=== PATIENT | male | born 1960 | race Caucasian/White ===

== ENCOUNTER → 2021-04-11 12:40 | Outpatient (CLI) | payer BC, SELFPAY ==
--- NOTE | ~2021-04-11 | MR_ITS ---
EXAMINATION: MR ankle RT wo con DATE: 04/11/2021 13:41 INDICATION: Insertional Achilles tendinopathy TECHNIQUE: Magnetic resonance imaging (MRI) of the right ankle was performed without intravenous cont rast. Sequences included sagittal, coronal, and axial proton-density weighted fast spin echo without and with fat saturation. COMPARISON: None. FINDINGS: Medial ankle ligaments: Deep and superficial deltoid ligaments as well as the spring ligament are normal. Lateral ankle ligaments: The anterior and posterior inferior tibiofibular ligaments are normal. The anterior talofibular, calc aneofibular and posterior talofibular ligaments are normal. Tendons: Mild thickening and mild increased signal at the lateral aspect of the distal Achilles tendon consist ent with mild tendinosis without discrete tear. Tiny associated Achilles calcaneal spur. No associate d peritendinitis. The peroneus longus and brevis tendons are normal. The tibialis anterior and extens or hallucis longus and extensor digitorum longus tendons are normal. The tibialis posterior, flexor d igitorum longus and flexor hallucis longus tendons are normal. Plantar fascia: Small plantar calcaneal spur. There is thickening of the proximal plantar aponeurosis with minimal in creased signal without surrounding edema to suggest acute plantar fasciitis. Small heterotopic ossicl e is seen within the central component of the plantar aponeurosis proximally 3 cm from its calcaneal origin more distal than typical for enthesopathy. Bones/other: Bone alignment is normal. Mild to moderate polyarticular osteoarthritis in the midfoot most prominent at the second and third tarsal metatarsal joints and at the articulation between the medial and mid cuneiforms. Mild osteoarthritis at the subtalar joint. No fracture or pathologic marrow replacing pro cess. Fluid: Physiologic amount fluid in the joint spaces. No tenosynovitis, bursitis or other abnormal fluid elbert ections. IMPRESSION: 1. Mild insertional tendinosis/enthesopathy at the distal Achilles tendon without discrete tear. 2. More prominent enthesopathy at the proximal plantar aponeurosis with more distal heterotopic ossic le which could be related to prior trauma or diffuse idiopathic skeletal hyperostosis (DISH). 3. Mild to moderate polyarticular osteoarthritis the right mid and hindfoot. Reviewed, dictated and finalized at location A. DIATION CONSULTANT IMPRESSION: 1. Mild insertional tendinosis/enthesopathy at the distal Achilles tendon witho ut discrete tear. 2. More prominent enthesopathy at the proximal plantar aponeurosis with more di stal heterotopic ossicle which could be related to prior trauma or diffuse idio pathic skeletal hyperostosis (DISH). 3. Mild to moderate polyarticular osteoarthritis the right mid and hindfoot.
== END ==
PROVIDERS: PCP Internal Medicine; Visit Provider Podiatrist Foot & Ankle Surgery
DX: M67.871 Other specified disorders of synovium, right ankle and foot (principal); M19.071 Primary osteoarthritis, right ankle and foot; M77.31 Calcaneal spur, right foot
CPT/HCPCS: 73721

== ENCOUNTER 2021-04-16 18:47 | Emergency (ER) | payer BC, SELFPAY ==
--- NOTE | ~2021-04-16 | XR_ITS ---
XR chest 2V DATE: 04/16/2021 19:04 INDICATION: Cough, shortness of breath. Covid-positive for 2 weeks. TECHNIQUE: PA and lateral views COMPARISON: 03/11/2016 2 view chest FINDINGS: Patchy bilateral groundglass infiltrates are noted particularly in the mid and lower lung z ones suggesting bilateral Covid pneumonia. No pleural effusion or pulmonary vascular congestion or pneumothorax. Normal heart size. IMPRESSION: Patchy bilateral groundglass infiltrates suggesting bilateral Covid pneumonia Reviewed, dictated and finalized at location A. S OPERATIONS SPECIALIST
[2021-04-16 18:50] VITALS: BP 177/108; PULSE 106; RESP 20; TEMP 37.8; O2SAT 96
--- NOTE | 2021-04-16 19:04 | ED.URI ---
HPI - URI/Sore Throat General Chief Complaint: Upper Respiratory Infection Stated Complaint: SOB S/P COVID Time Seen by Provider: 04/16/21 19:04 Source: patient, RN notes reviewed and old records reviewed Mode of arrival: ambulatory Limitations: no limitations History of Present Illness HPI Narrative: 60-year-old male who presents to [facility] with complaints of feeling some dyspnea with exertion and not feeling like his strength is returning after being diagnosed with COVID 2 weeks ago. Patient states that he took a vacation week off this week because he didn't feel he was able to go back to work yet. Patient states that he did have 2 Moderna vaccines but has not had booster. Patient is still running a low grade fever of 100F,. Patient reports that he is still coughing and at times is bringing up some white mucous. MD elicited complaint: cough Related Data Home Medications Medication Instructions Recorded Confirmed aspirin [Aspir-81] 81 mg PO DAILY 04/16/21 04/16/21 lisinopril 10 mg PO DAILY 04/16/21 04/16/21 metoprolol tartrate 50 mg PO BID 04/16/21 04/16/21 simvastatin 40 mg PO HS 04/16/21 04/16/21 Allergies Allergy/AdvReac Type Severity Reaction Status Date / Time No Known Allergies Allergy Unverified 02/18/19 10:33 Review of Systems Review of Systems: CONSTITUTIONAL: Positive fever, chills, or sweats. EYES: Denies visual changes, redness, or discharge. ENT: Positive rhinorrhea, congestion,no sore throat, or otalgia. CARDIOVASCULAR: Denies chest pain, palpitations, or edema. RESPIRATORY: Positive for cough and dyspnea. GASTROINTESTINAL: Denies abdominal pain, nausea, vomiting, or diarrhea. GENITOURINARY: Denies dysuria or hematuria. SKIN: Denies rash or itching. MUSCULOSKELETAL: Denies back pain, joint pain, or myalgia. NEUROLOGIC: Denies headache, numbness, or weakness. PSYCHIATRIC: Positive history of anxiety or depression. All systems reviewed & are unremarkable except as noted in HPI and below PMFSH Past Medical History Medical History (Updated 04/16/21 @ 19:41 by Belen Pepe NP) Hyperlipidemia Hypertension Obesity Surgical History Surgical History (Updated 04/16/21 @ 19:43 by Belen Pepe NP) H/O right knee surgery History of shoulder surgery History of thumb surgery right Social History Social History (Updated 04/16/21 @ 19:43 by Belen Pepe NP) Smoking status: Never smoker Alcohol intake: former Substance use: never Living arrangements: with family Gender identity (if verbalized by the patient): Male Comments At time of signature, agree with nursing past medical, surgical, social and family history. There is no relevant family history pertinent to the presenting complaint Exam Narrative: GENERAL: Well-appearing, well-nourished, and in no acute distress. HEAD: Normocephalic, atraumatic. EYES: PERRLA and EOMI. ENT: Nares red with clear rhinorrhea no epistaxis. Mucous membranes moist.TM's normal with good light reflex, throat red with no lesions or exudates, no tonsil swelling post nasal drainage NECK: Supple. no lymphadenopathy CHEST: coarse breath sound to bilateral lung bases on auscultation. No respiratory distress.SAO2 96% on room air HEART: Regular rate and rhythm. No murmur heard. Normal peripheral pulses. ABDOMEN: Soft, nontender, nondistended, normal active bowel sounds. EXTREMITIES: Normal range of motion. No edema. SKIN: Warm, dry, no rash. NEURO: No focal deficits. Alert and oriented x3. Course Course Level of Care: Express Care Visit Vital Signs Vital signs: Vital Signs Temperature 37.8 C H 04/16/21 18:50 Pulse Rate 106 H 04/16/21 18:50 Respiratory Rate 20 04/16/21 18:50 Blood Pressure 177/108 H 04/16/21 18:50 Pulse Oximetry 96 04/16/21 18:50 Temperature 37.8 C H 04/16/21 18:50 Pulse Rate 106 H 04/16/21 18:50 Respiratory Rate 20 04/16/21 18:50 Blood Pressure 177/108 H 04/16/21 18:50 Pulse Oximetry 96 03/24
[2021-04-16 19:32] VITALS: BP 154/87; PULSE 102
== END 2021-04-16 19:32 | disposition home or self-care (01) ==
PROVIDERS: Emergency Provider Registered Nurse; PCP Internal Medicine
DX: U07.1 COVID-19 (principal); J12.82 Pneumonia due to coronavirus disease 2019; E78.5 Hyperlipidemia, unspecified; I10 Essential (primary) hypertension; E66.9 Obesity, unspecified; Z68.41 Body mass index [BMI] 40.0-44.9, adult
CPT/HCPCS: 71046; 99203; G0463

== ENCOUNTER 2024-10-06 09:00 | Outpatient (CLI) | payer MEDICARE, SELFPAY ==
--- NOTE | ~2024-10-06 | NM_ITS ---
NM bone scan limited area INDICATION: Congenital malformation TECHNIQUE: The patient was injected with 23.6 mCi Tc 99m HDP. Gamma camera images of the pelvis were obtained. COMPARISON: None FINDINGS: There is normal distribution of radiopharmaceutical throughout the skeletal and soft tissue structures. There is mild uptake in the lumbar spine paracentrally, consistent with degenerative abdoulaye nge. There is normal uptake in the bladder. IMPRESSION: 1: Normal limited bone scan of the pelvis for age. Reviewed, dictated and finalized at location A.
--- OUTSIDE RECORDS SUMMARY | 2024-10-06 09:07 | XMS_ITS | Clinical Summary ---
Author Organization [facility] [place] Address [address] [place] [address] Care Team Providers Care Oil Spreader Operator Name Role Phone Devendra Crespo MD Unavailable [phone] Source Comments [facility],non-owned Affiliates and Associated Physician Practices is amultiple site organization consisting of ambulatory clinics and hospital sitesin [place], [place], [place] and [place]. This disclosure is being madepursuant to the Care Everywhere program and may not contain all information available regarding this patient. Last updated 17.[facility] Allergies No known active allergies Medications * Be aware that medications may not be up to date on this document. Alwaysverify current medications with the patient. lisinopril-hydro chlorothiazide (PRINZIDE; ZESTORETIC) 10-12.5 MG tablet daily. Active metoprolol tartrate IR (LOPRESSOR) 50 MG tablet 2 times daily. Active simvastatin (ZOCOR) 40 MG tablet at bedtime. Active Active Problems Problem Noted Date Diagnosed Date Hypertension 04/17/2010 Displacement of lumbar inter vertebral disc without myelopathy 04/17/2010 Social History Tobacco Use Types Packs/Day Years Used Date Smoking Tobacco: Never Smokeless Tobacco: Never Alcohol Use Standard Drinks/Week Comments No 0 (1 standard drink = 0.6 oz pur e alcohol) Sex and Gender Information Value Date Recorded Sex Assigned at Not on file Legal Sex Male 9:51 AM PRE CODER Gender Identity Not on file Sexual Orientation Not on file Last Filed Vital Signs Vital Sign Reading Time Taken Comments Blood Pressure - - Pulse - - Temperature - - Respiratory Rate - - Oxygen Saturation - - Inhaled Oxygen Concentration - - Weight 124.7 kg (275 lb) 04/17/2010 1:08 PM PRE CODER Height 172.7 cm (5' 8) 04/17/2010 1:08 PM PRE CODER Body Mass Index 41.81 04/17/2010 1:08 PM PRE CODER Plan of Treatment Health Maintenance Due Date Last Done Comments COLOGUARD (AGES 45-75) - COL ON CA SCREENING 1961 COLON MONITORING 1961 COLONOSCOPY - COLON CA SCREENING 1961 CT COLONOGRAPHY - COLON CA SCREENING 1961 Colorectal Cancer Screening 1961 FIT - COLON CA SCREENING 1961 FLEX SIG - COLON CA SCREENING 1961 HIV SCREENING 1976 HEPATITIS C SCREENING 05/03/1979 DTAP/TDAP/TD VACCINES (1 - Tdap) 1980 PNEUMOCOCCAL VACCINE 50+ (1 of 1 - PCV) 2011 ZOSTER VACCINE (1 of 2) 2011 Respiratory Syncytial Virus (RSV) Vaccine Pt: or over 60 yrs (1 - Risk 60-74 years 1-dose series) 2021 COVID-19 VACCINE (1 - 2023-2 5 season) 2023 DEPRESSION SCREENING 03/23/2024 INFLUENZA VACCINE (#1) 2024 HEPATITIS B VACCINE Aged Out No longe r eligible based on patient's age to complete this topic HIB VACCINE Aged Out No longer eligi ble based on patient's age to complete this topic HPV VACCINE Aged Out No longer eligi ble based on patient's age to complete this topic MENINGOCOCCAL (Group B) VACC INE SHARED DECISION-MAKING Aged Out No longer eligibl e based on patient's age to complete this topic MENINGOCOCCAL GROUPS A/C/Y/W VACCINE Aged Out No longer eligible b ased on patient's age to complete this topic Care Teams Oil Spreader Operator Relationship Specialty Start Date End Date Devendra Crespo MD [address] [place] [phone] Internal Medicine 04/17/10
--- OUTSIDE RECORDS SUMMARY | 2024-10-06 09:07 | XMS_ITS | Encounter Summary ---
Author Organization [facility] Address [address] [place] [address] Phone Care Team Providers Care Spreader Name Role Phone Devendra Crespo MD Primary Care Provider Encounter Details Date Type Department Care Team (Late st Contact Info) Description 09/22/2024 Results Follow-Up [facility] [address] [facility] [address] [place] [address] Maisha Smith MD PhD [address] [place] [address] Surgical pathology Social History Tobacco Use Types Packs/Day Years Used Date Smoking Tobacco: Never Smokeless Tobacco: Never AUDIT-C Answer Date Recorded Q1: How often do you have a drink containing alcohol? Never 04/23/2023 Q2: How many drinks containi ng alcohol do you have on a typical day when you are drinking? Patient does not drink Q3: How often do you have si x or more drinks on one occasion? 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
--- OUTSIDE RECORDS SUMMARY | 2024-10-06 09:07 | XMS_ITS | Clinical Summary ---
Author Organization [facility] [address] Address [address] [place] [phone] Care Team Providers Care Automation Application Engineer Name Role Phone Devendra Crespo MD Primary Care Provider Allergies No known active allergies Medications diazePAM (VALIUM) 5 mg tablet Take 1 tablet (5 mg total) by mouth every 8 (eight) hours as needed 09/30/2010 Active lisinopril-hydro CHLOROthiazide (ZESTORETIC) 10-12.5 mg per tablet Take 1 tablet by mouth daily Active memantine (NAMENDA) 5 mg tablet Take 1 tablet (5 mg total) by mouth 2 (two) times a day 08/30/2024 Active metoprolol tartrate (LOPRESSOR) 50 mg immediate release tablet Take 1 tablet (50 mg total) by mouth 2 (two) times a day Active simvastatin (ZOCOR) 40 mg tablet Take 1 tablet (40 mg total) by mouth daily Active Active Problems No known active problems Encounters Date Type Department Care Team Description 09/22/2024 Results Follow-Up [facility] [address] [place] [address] Out[address] Health [address] [place] [address] Maisha Smith MD PhD Surgical pathology 09/20/2024 Orders Only [facility] [address] [place] [address] Maisha Smith MD PhD Neoplasm of unspecified behavior of bone, soft tissue, and skin 09/19/2024 11:00 AM CDT Office Visit [facility] [address] [facility] [address] [place] [address] Maisha Smith MD PhD Neoplasm of unspecified behavior of bone, soft tissue, and skin (Primary Dx); Actinic keratosis from Last 3 Months Social History Tobacco Use Types Packs/Day Years Used Date Smoking Tobacco: Never Smokeless Tobacco: Never Tobacco Cessation:Counseling Given: Not Answered AUDIT-C Answer Date Recorded Q1: How often [...] on file 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 Gender Identity Not on file Sexual Orientation Not on file Obstetrics History Last Filed Vital Signs Vital Sign Reading Time Taken Comments Blood Pressure - - Pulse - - Temperature - - Respiratory Rate - - Oxygen Saturation - - Inhaled Oxygen Concentration - - Weight 139.3 kg (307 lb 1.6 oz) 04/23/2023 2:48 PM RAIL EXPRESS CLERK Height 165.1 cm (5' 5) 04/23/2023 2:48 PM RAIL EXPRESS CLERK Body Mass Index 51.1 04/23/2023 2:48 PM RAIL EXPRESS CLERK Plan of Treatment Health Maintenance Due Date Last Done Comments Colon Cancer Screening-Colonoscopy 1961 Depression Screening 1961 Hepatitis C Screening 1961 Prostate Cancer Screening-PSA 1961 DTaP/Tdap/Td Vaccine (1 - Tdap) 1972 Hepatitis B Screening 1979 Regular Well Visit/Exam 18-64 1979 Zoster Vaccine (1 of 2) 2011 Covid-19 Vaccine (3 2023-2 5 season) 2023 06/22/2020, 05/25/2020 Influenza Vaccine (#1) 2024 12/19/2017 Pneumococcal vaccine <65 Aged Out No longer eligible based on patient's age to complete this topic Procedures Procedure Name Priority Date/Time Associated Diagnosis Comments SURGICAL PATHOLOGY Routine 09/19/2024 12 :00 AM CDT Neoplasm of unspecified behavior of bone, soft tissue, and skin from Last 3 Months Results * Surgical pathology (09/19/2024 12:00 AM CDT) Tissue (Skin, shave biopsy) 09/19/2024 09/20/2024 8:07 AM CDT [facility] - 09/21/2024 12:13 PM CDT EPIC results best viewed via link to PDF [facility] [address], [address], [place] [address] [email or web address] Note to Patients: This report may contain a detailed description of human tissue sent by a health care provider to the laboratory for pathologic evaluation. The content of this report is essential for diagnosis and may provide important critical findings. This information may be unfamiliar to patients to review without a medical professional present. It is advised that the patient review this report in the presence of a health care provider who can answer questions and explain the details. FINAL REPORT Patient Information: PATIENT NAME: DAR ROSAS SEX: M : 1960 (Age: 64) Specimen Information: COLLECTED: 09/19/2024 RECEIVED: 09/20/2024 REPORTED: 09/21/2024 Submitting Physician Information: Maisha Smith MD PhD [address] [place] [address] , DERMATOPATHOLOGY REPORT RESULTS DIAGNOSIS: SKIN, LEFT FRONTAL SCALP, SHAVE BIOPSY: BASAL CELL CARCINOMA exr/lac By this signature, I attest that the above diagnosis is based upon my personal examination of the slides(and/or other material indicated in the diagnosis). Emily Dejesus M.D. Report Electronically Reviewed and Signed Out By Emily Dejesus M.D. 09/21/2024 12:13:22 CLINICAL INFORMATION 1 CM PINK SCALY PLAQUE R/O BCC SPECIMEN DATA MICROSCOPIC DESCRIPTION: Irregular aggregates of atypical basal epithelial cells with palisading of their peripheral nuclei are present within the dermis. (C44.91) GROSS DESCRIPTION: Received in a formalin-containing bottle is a superficial fragment of pink-mireles, slightly crusted, and slightly crusted skin measuring 1.2 by 1.0 by 0.2 cm. The surgical margin is inked blue. The specimen is sectioned into 5 pieces and submitted entirely in a single cassette. Due to shrinkage, measurements may be different than those at time of procedure. sarthak/mat ICD-9 A; ZSD.176 Clerical Data A; 84621 The characteristics of special, immunohistochemical, and immunofluorescence stains and in-situ hybridization tests performed by the [facility] were deemed acceptable in ongoing quality reviewer measures and in compliance with regulations drawn from the Clinical Laboratory Improvement Act xz2301 (CLIA '88). Control reactions for all stains performed were deemed adequate and appropriate by a pathologist prior to evaluation of patient tissue. Some diagnoses were rendered with the assistance of laboratory-developed tests utilizing analyte-specific reagents; the performance characteristic of these tests were determined by [facility] and are not cleared or approved by the [place] Food an Drug administration. Laboratory developed test may only be performed in a facility that is certified by the [facility] as a high-complexity laboratory under CLIA '88. These tests are used for clinical purposes and are not investigational. us Maisha Smith MD PhD LAB PATHOLOGY ORDERABLE S Final Result [facility] C[facility] [address] [place] [id number] from Last 3 Months Insurance [facility] MEDICARE Care Teams Automation Application Engineer Relationship Specialty Start Date End Date eDvendra Crespo MD [address] [facility] [address] [place] [address] PCP - General Internal Medicine 02/27/23
--- OUTSIDE RECORDS SUMMARY | 2024-10-06 09:07 | XMS_ITS | Referral Summary ---
Author Organization [facility] Address [address] [place] [phone] Care Team Providers Care Orthopedic Specialist Name Role Phone Devendra Crespo MD Primary Care Provider Encounters Date Type Department Care Team Description 09/22/2024 Results Follow-Up [facility] [address] [place] [address] Outpatient Health [address] [place] [phone] Maisha Smith MD PhD Surgical pathology 09/20/2024 Orders Only [facility] [address] [place] [address] Maisha Smith MD PhD Neoplasm of unspecified behavior of bone, soft tissue, and skin 09/19/2024 11:00 AM CDT Office Visit [facility] [address] [place] [address] Outpatient Health [address] [place] [phone] Maisha Smith MD PhD Neoplasm of unspecified behavior of bone, soft tissue, and skin (Primary Dx); Actinic keratosis from Last 3 Months Allergies No known active allergies Medications diazePAM [...] Active Active Problems No known active problems Social History Tobacco Use Types Packs/Day Years [...] on file 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 Gender Identity Not on file Sexual Orientation Not on file Last Filed Vital Signs Vital Sign Reading Time Taken Comments Blood Pressure - - Pulse - - Temperature - - Respiratory Rate - - Oxygen Saturation - - Inhaled Oxygen Concentration - - Weight 139.3 kg (307 lb 1.6 oz) 04/23/2023 2:48 PM PROCESSING ASSISTANT Height 165.1 cm (5' 5) 04/23/2023 2:48 PM PROCESSING ASSISTANT Body Mass Index 51.1 04/23/2023 2:48 PM PROCESSING ASSISTANT Plan of Treatment Not on file Procedures Procedure Name Priority Date/Time Associated Diagnosis Comments SURGICAL PATHOLOGY Routine 09/19/2024 12 :00 AM CDT Neoplasm of unspecified behavior of bone, soft tissue, and skin from Last 3 Months Results * Surgical pathology (09/19/2024 12:00 AM CDT) Tissue (Skin, shave biopsy) 09/19/2024 09/20/2024 8:07 AM CDT [facility] - 09/21/2024 12:13 PM CDT [facility] results best viewed via link to PDF [facility] [address] [place] [address], [address], [place] [address] [email or web address] Note to Patients: This report may contain [...] Physician Information: Maisha Smith MD PhD [address] [place] [address] , DERMATOPATHOLOGY REPORT RESULTS DIAGNOSIS: SKIN, LEFT [...] sarthak/mat ICD-9 A; ZSD.176 Clerical Data A; 32294 The characteristics of special, immunohistochemical, and immunofluorescence stains and in-situ hybridization tests performed by the [facility] were deemed acceptable in ongoing quality improvement coordinator (rn) measures and in compliance with regulations drawn from the Clinical Laboratory Improvement Act [id number] (CLIA '88). Control reactions for all stains [...] a facility that is certified by the [facility] as a high-complexity laboratory under CLIA '88. These tests are used for clinical purposes and are not investigational. Maisha Smith MD PhD LAB PATHOLOGY ORDERABLE S Final Result D[facility]MATOPATHOLOGY CENTER [address] [place] [id number] from Last 3 Months Insurance [facility] MEDICARE Care Teams Orthopedic Specialist Relationship Specialty Start Date End Date Devendra Crespo MD [address] [place] [address] PCP - General Internal Medicine 02/27/23
--- OUTSIDE RECORDS SUMMARY | 2024-10-06 09:08 | XMS_ITS | Data Portability ---
Author Organization [facility] MIGUEL ÁNGELMark Address [address] [place] [address] Care Team Providers Care Track Welder Name Role Phone LOREN CHAMBERLAIN Primary Care Provider Unavailab le Assessment No assessment recorded. Plan of Treatment Reminders Order Date Submit Date Provider Last Modified By Organization Details Last Modified Time Details Appointments ANY 15 2024 10:30A M IGNACIA Reyez Not available Not available Not available Lab HbA1c (hemog lobin A1c), blood 2024 025 [facility], [address], [place], [address], 04/13/2024 10:18:37 CBC w/ auto diff 2024 025 [facility], [address], [place], [address], 04/13/2024 10:18:47 CMP, serum or plasma 2024 025 [facility], [address], [place], [address], 04/13/2024 10:18:11 urinal ysis comple te, reflex cultur e 2024 025 [facility], [address], [place], [address], 04/13/2024 10:19:02 lipid panel, serum 2024 025 [facility], [address], [place], [address], 04/13/2024 10:17:56 insuli n, serum 2024 025 [facility], [address], [address], [place], [address], 04/13/2024 10:19:26 TSH + free T4, serum 2024 025 [facility], [address], [address], [place], [address], 04/13/2024 10:16:41 vitami n B12 + folate , serum or blood 2024 025 [facility], [address], [address], [place], [address], 04/13/2024 10:19:14 Referral podiat rist referr al 2024 025 [facility], [address] [place] [address], [address], 09/28/2024 16:33:47 dermat ologis t referr al 2024 025 [email or web address] [facility], [address] [facility] , [place], [address], 09/16/2024 12:57:21 Procedures home sleep testin g (PROC) - #[id number] 5, effect cayla 2024 - 2024, for proced ure codes 68866, G0399 2024 025 [email or web address] [facility], [address] [place] [address], [place], [address], 07/23/2024 02:31:14 Surgeries None record ed. Imaging NM, bone scan, limite d - focus iliac/ pelvic bones 2024 025 [facility] (Imaging), [address], [place], [address], 09/22/2024 12:06:27 CT, abdome n + pelvis , w/ contra st 2024 025 [facility] (Imaging), [address], [place], [address], 05/31/2024 10:38:04 MRI, brain, w/wo contra st 2024 025 [facility], [address], [place], [address], 04/18/2024 14:11:47 Medication Orders tadala scott 20 mg tablet 2024 025 [facility] #[id number], [address], [place], [address], 09/20/2024 10:29:02 Namend a Titrat ion Dash 5 mg-10 mg tablet s in a dose pack 2024 025 [facility]acy #[id number], [address], [place], [address], 05/06/2024 17:56:54 amoxic illin 500 mg capsul e 2024 025 [email or web address] [facility]/Pharmacy #[id number], [address], [place], [address], 07/29/2024 15:04:17 citalo pram 20 mg tablet 2024 025 [facility]/Pharmacy #[id number], [address], [place], [address], 04/29/2024 17:51:37 Patient TargetsNo targets recorded. 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 [address] [address], [place], [address], 04/28/2024 12:02:14 06/01/19 25 05/30/2024 CT, abdom en + pelvi s, w/ contr ast No observ ation record ed. [email or web address] [facility] [address] [place], [address], 08/18/2024 09:05:40 06/07/19 25 10/05/2019 colon oscop y scree chinmay (PROC ) No observ ation record ed. BARCODE Not Available 2024 14:57:57 06/08/19 25 05/27/2024 home sleep testi ng (PROC ) No observ ation record ed. [facility] [address], [place], [address], 06/13/2024 18:54:05 Result Notes None recorded. Problems Name Problem SNOMED Code Status Onset Date Resolution Date Notes Provider Name and Address Organization Details Recorded Time Body mass index 40+ - severely obese 335768230 Active 2024 IGNACIA Reyez Attn: Accountin g,[address] [facility], [place], [address], [place] [facility] 5 10:10:45 Minimal cognitive impairment 563861108 Active 2024 IGNACIA Reyez Attn: Accountin g,[address] [facility], [place], [address], [place] [facility] 5 09:57:05 Intermitten t confusion 323227353 Active 2024 IGNACIA Reyez Attn: Accountin g,[address] [facility], [place], [address], [place] [facility] 5 09:57:17 Emotional upset 739027515 Active 2024 IGNACIA Reyez Attn: Accountin g,[address] [facility], [place], [address], [place] [facility] 5 09:57:34 Benign essential hypertensio n 7732073 Active 2024 IGNACIA Reyez Attn: Accountin g,[address] [facility], [place], [address], [place] [facility] 5 09:57:35 Apnea 7851193 Active 2024 IGNACIA Reyez Attn: Accountin g,[address] [facility], [place], [address], [place] [facility] 5 09:58:12 Blood glucose outside reference range 414436709 Active 2024 IGNACIA Reyez Attn: Accountin g,[address] [facility], [place], [address], [place] [facility] 5 09:58:16 Pigmented skin lesion of uncertain nature of head 598357011 Active 2024 IGNACIA Reyez Attn: Hugo andujar,[address] [facility], [place], [place], [address] [place] [address], [place] [facility] 5 09:58:26 Positive screening for depression on PHQ-9 (Patient Health Questionnai re 9) 9600871919778 00 Active 2024 IGNACIA Reyez Attn: Hugo andujar,[address] [place], [place], [address] [place] [address], [place] [facility] 5 09:59:13 Anxiety 48188553 Active 2024 IGNACIA Reyez Attn: Hugo andujar,[address] [place], [place], [address] [place] [address], [place] [facility] 5 09:35:00 Obesity 988146552 Active 2024 IGNACIA Reyez Attn: Zaneherlinda andujar,[address] [place], [place], [address] [place] [address], [place] [facility] 5 09:35:14 Long-term drug therapy Active 2024 IGNACIA Reyez Attn: Hugo andujar,[address] [place], [place], [address] [place] [address], [place] [facility] 5 09:35:24 Lower abdominal pain 17432005 Active 2024 IGNACIA Reyez Attn: Zaneherlinda andujar,[address] [place], [place], [address] [place] [address], [place] [facility] 5 09:36:16 Pure hypercholes terolemia 042200387 Active 2024 Seema Hayes LPN null, [place] [facility] 5 09:24:49 Obese class III 093503687 Active 2024 IGNACIA Reyez Attn: Hugo g,[address] [place], [place], [address] [place] [address] 2, [place] [facility] 5 21:05:52 Mixed sleep apnea 191675830 Active 2024 IGNACIA Reyez Attn: Hugo andujar,[address] [facility], [place], [address], [facility] [place] - [facility] 13:47:22 Erectile dysfunction 875613562 Active 2024 IGNACIA Reyez Attn: Hugo andujar,[address] [facility], [place], [address], [facility] [place] - SI 13:47:39 Problem Notes None recorded. Procedures Surgical History Date Name Laterality Status Provider Name and Address Organization Details Recorded Time Back Surgery completed Jos Solis MA [facility] 04/04/2024 16:04:52 Knee Surgery completed Jos Solis MA [facility] 04/04/2024 16:04:58 Tonsillectomy completed Jos Solis MA [facility] 04/04/2024 16:05:03 procedure on foot completed Jos Solis MA [facility] 04/04/2024 16:05:10 Imaging Results None recorded. Procedure Notes None recorded. Medical Equipment None Reported. Allergies No known drug allergies Medications Name Sig Start Date Stop Date Status Note LastModified by Organization Details LastModified Time cyclobenzap rine 10 mg tablet TAKE 1 TAB BY MOUTH ONCE DAILY AT BEDTIME FOR 8-10 DAYS, DO NOT DRIVE OR OPERATE MACHINERY 04/04 completed Not Available Not Available Not Available amoxicillin 500 mg capsule TAKE 1 CAPSULE EVERY 8 HOURS BY ORAL ROUTE, FOR SINUS INFECTION . 07/29 completed Not Available Not Available Not Available methocarbam ol 500 mg tablet Take by oral route for 5 days. 09/20 completed Not Available Not Available Not Available doxycycline hyclate 100 mg capsule TAKE 1 CAPSULE BY MOUTH TWICE A DAY 03/08 completed Not Available Not Available Not Available azithromyci n 250 mg tablet TAKE 2 TABLETS BY MOUTH TODAY, THEN TAKE 1 TABLET DAILY FOR 4 DAYS DIRECTED 03/08 completed Not Available Not Available Not Available benzonatate 200 mg capsule TAKE 1 CAPSULE BY MOUTH THREE TIMES A DAY 03/08 completed Not Available Not Available Not Available prednisone 20 mg tablet TAKE 3 TABLETS BY MOUTH EVERY DAY FOR 5 DAYS 03/08 completed Not Available Not Available Not Available simvastatin 40 mg tablet Take 1 tablet every day by oral route for 90 days. active Not Available Not Available No t Available citalopram 20 mg tablet TAKE 1 TABLET EVERY DAY BY ORAL ROUTE IN THE EVENING, FOR ANXIETY. active Not Available Not Available No t Available baclofen 10 mg tablet TAKE 1 TABLET BY MOUTH FOUR TIMES A DAY 04/04 completed Not Available Not Available Not Available metoprolol tartrate 50 mg tablet TAKE 1 TABLET BY MOUTH TWICE A DAY active Not Available Not Available No t Available lorazepam 1 mg tablet TAKE 1 TABLET BY MOUTH 30 MINUTES BEFORE MRI 09/20 completed Not Available Not Available Not Available lisinopril 10 mg-hydrochl orothiazide 12.5 mg tablet TAKE 1 TABLET BY MOUTH EVERY DAY active Not Available Not Available No t Available albuterol sulfate HFA 90 mcg/actuati on aerosol inhaler INHALE 2 PUFFS EVERY 4 HOURS NEEDED 04/04 completed as neede d/ hasn' t h Not Available Not Available Not Available naproxen 500 mg tablet TAKE 1 TABLET BY MOUTH EVERY 12 HOURS FOR 8-10 DAYS TAKE WITH FOOD 04/04 completed Not Available Not Available Not Available tadalafil 20 mg tablet TAKE 1 TABLET BY MOUTH 30 MINUTES BEFORE SEXUAL ACTIVITY. MAXIMUM 20 MG IN 24 HOURS. active Not Available Not Available No t Available memantine 5 mg tablet TAKE 1 TABLET BY MOUTH TWICE A DAY active Not Available Not Available No t Available Namenda Titration Dash 5 mg-10 mg tablets in a dose pack take as directed for memory 05/06 completed Not Available Not Available Not Available Gerard active mg Not Available Not Availa ble Not Available Symbicort 80 mcg-4.5 mcg/actuati on HFA aerosol inhaler INHALE 2 INHALATIO NS EVERY 12 HOURS active Not Available Not Available No t Available Vitals Date Recorded Systolic And Diastolic Provider Name and Address Organization Details Last Updated DateTime 04/04/2024 128/80 mm[Hg] IGNACIA Reyez Attn: Accounting,[address] [place], [address], [place] [facility] 04/04/2024 15:37:00 Date Recorded Body weight Body mass index (BMI) Body height Respiratory rate Oxygen saturation Oxygen saturation in Arterial blood by Pulse oximetry Heart rate Systolic And Diastolic Provider Name and Address Organization Details Last Updated DateTime 5 102469. 56 g 48.8 kg/m2 165.1 cm 20 /min 97 % 97 % 87 /min 140/88 mm[Hg] Jos Solis MA [facility] 5 15:02:56 Date Recorded Systolic And Diastolic Provider Name and Address Organization Details Last Updated DateTime 04/28/2024 120/80 mm[Hg] IGNACIA Reyez Attn: Accounting,[address] [place], [address], [facility] 04/28/2024 12:17:10 Date Recorded Body height Body mass index (BMI) Body weight Respiratory rate Oxygen saturation Oxygen saturation in Arterial blood by Pulse oximetry Heart rate Systolic And Diastolic Provider Name and Address Organization Details Last Updated DateTime 5 165.1 cm 47.9 kg/m2 637987. 6 g 20 /min 97 % 97 % 61 /min 138/88 mm[Hg] Jos Solis MA [facility] 11:46:30 Date Recorded Systolic And Diastolic Provider Name and Address Organization Details Last Updated DateTime 07/29/2024 134/80 mm[Hg] IGNACIA Reyez Attn: Accounting,[address] [place], [address], [facility] 07/29/2024 15:46:03 Date Recorded Body height Body mass index (BMI) Body weight Respiratory rate Oxygen saturation Oxygen saturation in Arterial blood by Pulse oximetry Heart rate Systolic And Diastolic Provider Name and Address Organization Details Last Updated DateTime 5 165.1 cm 47.6 kg/m2 478803. 42 g 20 /min 97 % 97 % 62 /min 146/82 mm[Hg] Jos Solis MA [facility] 15:14:50 Date Recorded Body height Body mass index (BMI) Body weight Oxygen saturation Oxygen saturation in Arterial blood by Pulse oximetry Heart rate Respiratory rate Systolic And Diastolic Provider Name and Address Organization Details Last Updated DateTime 5 165.1 cm 47.4 kg/m2 546668. 83 g 99 % 99 % 65 /min 20 /min 120/82 mm[Hg] Jos Solis MA [place] [facility] 10:05:23 Social History Question Answer Notes LastModified by Organizat ion Details LastModified Time Tobacco Smoking Status Never Smoker Jos Solis MA null, [facility] 04/04/2024 15:01:01 Do You Have An Advance Directive? No Information not available 04/04/2024 Are You Blind Or Do You Have Difficulty Seeing? No Glasses Information not available 04/04/2024 What Is Your Level Of Caffeine Consumption? Moderate Soda Information not available 04/04/2024 In The 14 Days Before Symptom Onset, Have You Had Close Contact With A Laboratory-confir med COVID-19 While That Case Was Ill? No Information not available 04/04/2024 In The 14 Days Before Symptom Onset, Have You Had Close Contact With A Person Who Is Under Investigation For COVID-19 While That Person Was Ill? No Information not available 04/04/2024 Have You Been To An Area Known To Be High Risk For COVID-19? No Information not available 04/04/2024 Are You Deaf Or Do You Have Serious Difficulty Hearing? No Information not available 04/04/2024 What Type Of Diet Are You Following? REGULAR Information not available 04/04/2024 Are There Any Guns Present In Your Home? No Information not available 04/04/2024 What Was The Date Of Your Most Recent Tobacco Screening? 09/20/2024 Information not available 09/20/2024 What Is Your Relationship Status? Information not available 04/04/2024 Do You Use Your Seat Belt Or Car Seat Routinely? Yes Information not available 04/04/2024 Do You Have Smoke And Carbon Monoxide Detectors In Your Home? Yes Information not available 04/04/2024 Do You Use Sunscreen Routinely? No Information not available 04/04/2024 Has Tobacco Cessation Counseling Been Provided? No Information not available 04/04/2024 Sex: Male Functional Status Question Answer Note LastModified by Organizat ion Details LastModified Time Do you use any illicit or recreational drugs? No Information not available 04/04/2024 Do you or have you ever used any other forms of tobacco or nicotine? No Information not available 04/04/2024 What is your level of alcohol consumption? None Information not available 04/04/2024 Are you currently employed? No Information not available 04/28/2024 Are you able to care for yourself? Yes Information not available 04/04/2024 What is your exercise level? None Information not available 04/04/2024 Mental Status Question Answer Note LastModified by Organization D etails LastModified Time Do you feel stressed (tense, restless, nervous, or anxious, or unable to sleep at night)? [id number] Information not available 04/04/2024 Family History Relationship Description Onset Age of this Age Resolved Age Notes LastModified by Organization Details LastModified Time Mother Hypercholest erolemia [email or web address] Not available 2024 16:05:21 Mother Hypertensive disorder [email or web address] Not available 2024 16:05:41 Mother Kidney disease [email or web address] Not available 2024 16:05:49 Father Hypertensive disorder tcarterma Not available 2024 16:05:41 Medical History Condition Response Coronary Artery Disease N Other N High Blood Pressure Y Atrial Fibrillation N Kidney or Bladder Problems N Thyroid Problems N GI Problems N Depression N COPD N Blood Clots N Have you had a mammogram in the last yea r? N Skin Problems N Anemia N Heart Attack (IA) N Anxiety Disorder N Diabetes N Muscle, Joint, or Bone Problems N Seizures/Epilepsy N Have you had a colonoscopy in the last 1 0 years? N Acid Reflux (GERD) N Cancer N Stroke N Asthma N Allergies N Have you had a PSA blood test in the las t year? N High Cholesterol Y Hepatitis N Liver Disease N Headaches N Heart Failure N Osteoporosis N Past Encounters Encounter ID Performer Location Encounter Start Date Encounter Closed Date Diagnosis/Indication Diagnosis SNOMED-CT Code Diagnosis ICD10 Code Diagnosis Note [id number] Jasper Castro MD [facility] [address] [place] [address] 04/04/2024 14:28:44 04/04/2024 16:20:49 Body mass index 40+ - severely obese 798957902 Z68.42 BMI is 48.8. Fasting insulin and thyroid labs were ordered Morbid obesity 368558823 E66.01 discussed healthy diet, exercise, controllin g carbohydra luma and added sugars in the diet Minimal co gnitive impairment 493961041 R41.89 Screening vitamin B12 and folate to evaluate for any underlying B12 deficiency that may be contributi ng to his cognitive impairment Intermitte nt confusion 257414787 R41.0 Refer for MRI of the brain with and without contrast for his notable intermitte nt confusion that is present and escalating over the past year. We must rule out a normal pressure hydrocepha nicole or any brain lesion. Emotional upset 37971459 5 R45.89 Patient is very emotional on exam today which seems out of proportion to the situation. Benign ess ential hypertension 0898360 I10 Blood pressure stable at 120 8/80. Continue metoprolol tartrate 50 mg daily and lisinopril hydrochlor othiazide 10/12.5 mg daily Hyperlipidemia 45389229 E78.5 Continue simvastati n 40 mg daily and check fasting lipid panel Apnea 8879320 R06.81 Refer for home sleep study. There is a concern that chronic untreated sleep apnea with hypoxemia at night baby contributi ng to his cognition abnormalit ies and confusion. Blood gluc ose outside reference range 194245426 R73.09 Screening A1c ordered Long-term drug therapy 211941686 Z79.891 Routine CBC, CMP and urinalysis ordered Pigmented skin lesion of uncertain nature of head 628337092 L81.9 Refer to dermatolog y in a timely fashion for management and evaluation of abnormal skin lesion on the top of his head Positive s creening for depression on PHQ-9 (Patient Health Questionnaire 9) 2085891746 78165 Z13.31 Patient scored an 18 on screening today. He is currently not on any medication s for any anxiety or depression but at this time we are going to re-evaluat e for treatment on his follow-up appointmen t. Would like to have lab and diagnostic evaluation completed before starting a new medication . Patient will be following up April 28. [id number] Jasper Castro MD [facility] [employer] [address] [place] [address] 04/28/2024 10:51:09 04/28/2024 12:39:29 Body mass index 40+ - severely obese 349281174 Z68.42 BMI 47.9 Obesity 715200602 E66.9 discussed healthy diet, exercise, controllin g carbohydra luma and added sugars in the diet Sinusitis 27462148 J32.9 Start amoxicilli n 500 mg every 8 hours for 7 days Anxiety 13220445 F41.9 Start citalopram 20 mg daily for underlying anxiety disorder Minimal co gnitive impairment 399026864 R41.89 Start Namenda titration pack as directed for underlying cognitive impairment Long-term drug therapy 679569237 Z79.891 labs reviewed Lower abdominal pain [address] scan of abdomen and pelvis with contrast to evaluate for any hernia developmen t that would be responsibl e for the lower pain in the abdomen Pain in both feet 517941 4431 2071848 M79.671 M79.672 Refer to podiatry for baseline evaluation and foot pain [id number] Jasper Castro MD [facility] [employer] [address] [place] [address] 07/29/2024 14:41:47 07/29/2024 15:58:42 Mixed sleep apnea 165092204 G47.39 CPAP machine and supplies ordered for a different Navendis Anxiety 83840691 F41.9 Continue citalopram 20 mg daily for underlying anxiety disorder, some improvemen t as already noted with stabilizat ion of emotions. Minimal co gnitive impairment 020967800 R41.89 Continue Namenda dosing, tolerating well without any issues Long-term drug therapy 227645756 Z79.891 labs reviewed Disorder of bone 2212599 3 Q79.9 left iliac bone abnormal on CT scan a/p. ? paget's appearance . However MRI of the brain has been completed and does not show any abnormalit ies. We can order a nuclear med bone scan to see if there are any abnormalit ies Obese class III 59031761 5 E66.813 discussed healthy diet, exercise, controllin g carbohydra luma and added sugars in the diet [id number] Jasper Castro MD [facility] [place] [address] [place] [address] 09/20/2024 09:51:49 09/20/2024 11:10:58 Obese class III 496190476 E66.813 discussed healthy diet, exercise, controllin g carbohydra luma and added sugars in the diet Mixed sleep apnea 503053 001 G47.39 Orders again for CPAP machine and supplies given as he was significan tly positive on sleep study testing and he has not heard from previous DME company. Anxiety 32949971 F41.9 Continue citalopram 20 mg daily for underlying anxiety disorder, some improvemen t as already noted with stabilizat ion of emotions. Minimal co gnitive impairment 204097804 R41.89 Continue Namenda dosing, tolerating well without any issues Long-term drug therapy 086485066 Z79.891 Disorder of bone 7106960 3 Q79.9 left iliac bone abnormal on CT scan a/p. ? paget's appearance . However MRI of the brain has been completed and does not show any abnormalit ies. A nuclear med bone scan was ordered at the last appointmen t however he has not scheduled it and another order will be given today and encourage patient to schedule testing. Erectile dysfunction 860 497415 N52.9 Patient is interested in some medical assistance for erectile dysfunctio n that his wanted him to discuss with provider today. We will send a prescripti on for tadalafil 20 mg to use 1/24 hours on an as-needed basis. Health Concerns Section Related Observation LastModified by Organization Detai ls LastModified Time None Recorded Concern Status LastModified by Organization Details LastModified Time None Recorded Advance Directives Directive N: Payers Insurance Date Sequence Insurance Name Policy Number Policy Potter Covered Member ID Potter Member ID Guarantor Name 09/20/2024 1 [employer] [place] [place] - DOS ON OR AFTER 2020 (MEDICAID REPLACEMENT - HMO) Dar Rosas [id number] Dar Rosas 09/20/2024 2 [place] WHEN MEDICARE OR MEDICARE REPLACEMENT PRIMARY) Dar Rosas [id number] Dar Rosas 09/20/2024 [place] [facility] Dar Rosas [id number] Dar Rosas 09/20/2024 1 [place] Dar Rosas [id number] Dar Rosas Notes Date Note Type Note Provider Name and Address Organization Details Recorded Time 5 text/html Back PainReported bypatient.Notes:Patient reports a long history of chronic low back pain with a history of low back surgery.HyperlipidemiaRep orted bypatient.Notes:patient is currently taking simvastatin 40 mg daily for cholesterol managementHypertensionRep orted bypatient.Notes:For blood pressure control patient is taking metoprolol tartrate 50 mg daily and lisinopril hydrochlorothiazide 10/12.5 mg daily.Obstructive Sleep Apnea F/UReported bypatient.Notes:Patient has very notable apnea that is witnessed by family members. One of the main presentation chief complaints today that is endorsed by patient and his on interview is cognitive impairment and confusion that is been escalating over the last few years. He also is very emotional and tearful often and has a hard time managing his emotions. He has confusion on a daily basis and is rarely driving if so only a few blocks near his house. They present today for more in-depth evaluation on his symptoms. There has been no workup completed revolving around these symptoms. IGNACIA Reyez Attn: Accounting,[address] [place], [address], [facility] [place] - [facility] 04/13/2024 09:59:36 5 text/html Back PainReported bypatient.Notes:Patient reports a long history of chronic low back pain with a history of low back surgery.HyperlipidemiaRep orted bypatient.Notes:patient is currently taking simvastatin 40 mg daily for cholesterol managementHypertensionRep orted bypatient.Notes:For blood pressure control patient is taking metoprolol tartrate 50 mg daily and lisinopril hydrochlorothiazide 10/12.5 mg daily.Obstructive Sleep Apnea F/UReported bypatient.Notes:Patient has very notable apnea that is witnessed by family members.Sinusitis/Allergy Reported bypatient.Location:[facility]; frontal Associated Symptoms:facial pain;nasal discharge Onset/Timing:new onset Quality:no pain; no itching; no hoarseness; no throbbing; minimal discomfort;congested Severity:limits daily activities;frequent breathing through the mouth;worsened snoring Context:recent sick contacts Risk Factors:increased stress Alleviating factors:nothing gives relief Aggravating factors:worse during an upper respiratory infection (a cold); worse when allergies are active Prior opinionPCP HPI history: One of the main presentation chief complaints today that is endorsed by patient and his on interview is cognitive impairment and confusion that is been escalating over the last few years. He also is very emotional and tearful often and has a hard time managing his emotions. He has confusion on a daily basis and is rarely driving if so only a few blocks near his house. They present today for more in-depth evaluation on his symptoms. There has been no workup completed revolving around these symptoms. IGNACIA Reyez Attn: Accounting,[address] [place], [address], [place] - [facility] 05/21/2024 09:37:49 text/html Back PainReported bypatient.Notes:Patient reports a long history of chronic low back pain with a history of low back surgery.HyperlipidemiaRep orted bypatient.Notes:patient is currently taking simvastatin 40 mg daily for cholesterol managementHypertensionRep orted bypatient.Notes:For blood pressure control patient is taking metoprolol tartrate 50 mg daily and lisinopril hydrochlorothiazide 10/12.5 mg daily.Obstructive Sleep Apnea F/UReported bypatient.Notes:Patient has very notable apnea that is witnessed by family members. cpap to be ordered again as they have not heard from DME company yet after orders placed. HPI history: One of the main presentation chief complaints today that is endorsed by patient and his on interview is cognitive impairment and confusion that is been escalating over the last few years. He also is very emotional and tearful often and has a hard time managing his emotions. He has confusion on a daily basis and is rarely driving if so only a few blocks near his house. They present today for more in-depth evaluation on his symptoms. There has been no workup completed revolving around these symptoms. Updated HPI today: and patient are noticing his emotions are much more stable. He isn't crying as much since being on medications now. He is pleased with the improvements noted so far. IGNACIA Reyez Attn: Accounting,[address], [place], [address], [facility] [place] [facility] 08/18/2024 21:06:15 5 text/html HypertensionReported bypatient.Notes:For blood pressure control patient is taking metoprolol tartrate 50 mg daily and lisinopril hydrochlorothiazide 10/12.5 mg daily.Obstructive Sleep Apnea F/UReported bypatient.Notes:Patient has very notable apnea that is witnessed by family members. cpap to be ordered again as they have not heard from [employer] company yet after orders placed. HPI history: One of the main presentation chief complaints today that is endorsed by patient and his on interview is cognitive impairment and confusion that is been escalating over the last few years. He also is very emotional and tearful often and has a hard time managing his emotions. He has confusion on a daily basis and is rarely driving if so only a few blocks near his house. They present today for more in-depth evaluation on his symptoms. There has been no workup completed revolving around these symptoms. his emotions are much more stable. He isn't crying as much since being on medications now. He is pleased with the improvements noted so far. Patient has a complaint of erectile dysfunction and is interested in some assistance with medication. IGNACIA Reyez Attn: Accounting,[address], [place], [address], [facility] [place] [facility] 10/05/2024 13:48:45
--- OUTSIDE RECORDS SUMMARY | 2024-10-06 09:08 | XMS_ITS | Clinical Summary ---
Author Organization [facility] Address [address] [place] [id number] Phone Care Team Providers [employer] Name Role Phone Unavailable Primary Care Provider Unavailabl e Allergies No known active allergies Medications simvastatin (ZOCOR) 40 mg Oral tablet Take 40 mg by mouth Daily LATE. Active metoprolol tartrate (LOPRESSOR) 50 mg Oral tablet Take 50 mg by mouth 2 times daily. Active lisinopril-hydro chlorothiazide (ZESTORETIC) 10-12.5 mg Oral tablet Take 1 Tab by mouth daily. Active oxyCODONE-acetam inophen (PERCOCET) 5-325 mg Oral tablet Take 1-2 Tabs by mouth every 4 hours as needed. 50 Tab 0 09/30/2010 Active diazepam (VALIUM) 5 mg Oral tablet Take 1 Tab by mouth every 8 hours as needed (spasm). 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 Gender Identity Not on file Sexual Orientation Not on file Last Filed Vital Signs Vital Sign Reading Time Taken Comments Blood Pressure 123/51 09/30/2010 3:37 PM CDT Pulse 80 09/30/2010 3:37 PM CDT Temperature 36.4 C (97.6 F) 09/30/2010 3:37 PM CDT Respiratory Rate 29 09/30/2010 3:37 PM CDT Oxygen Saturation 98% 09/30/2010 3:37 PM CDT Inhaled Oxygen Concentration - - Weight 126.1 kg (278 lb) 09/26/2010 5:21 AM CDT Height 165.1 cm (5' 5) 09/19/2010 11:49 AM CDT Body Mass Index 46.26 09/19/2010 11:49 AM CDT Plan of Treatment Health Maintenance Due Date Last Done Comments DTAP/TDAP/TD VACCINES (1 - Tdap) 1980 COLORECTAL SCREENING 2006 Colorectal Cancer Screening 2006 FIT-DNA Q 3 years 2006 FIT/FOBT Q 1 year 2006 Flex Sig/CT Colonography Q 5 years 2006 ZOSTER VACCINE (1 of 2) 2011 INFLUENZA VACCINE (#1) 2024 RSV VACCINE (60+ or ) (1 - 1-dose 75+ series) 2036 Medical Devices Implanted Type Area [employer]orer [employer] Device Identifier Shelf Expiration Date Model / Serial / Lot Log [id number] - Bone & Biologicals - 1 - Infuse Protein Kit Lg [id number] Implanted:Qty: 1 on 09/26/2010 at [facility] Biological N/A: Spine Lumbar [employer]- SOFAMOR DANEK 01/21/2013 [id number] / / [id number] C Description:Anterior and Pos terior Lumbar Spine Log [id number] - Synthes Spine Antegra System - 1 - Plate Lumbar Antegra 43mm [id number] Implanted:Qty: 1 on 09/26/2010 at [facility] Plate N/A: Spine Lumbar SYNTHES-STRATEC- SPINAL 04102.14 3 / / Log [id number] - Synthes Spine Antegra System - 1 - Screw Canc Loc 6.5x28mm .028 Implanted:Qty: 4 on 09/26/2010 at [facility] Screw N/A: Spine Lumbar SYNTHES-STRATEC- SPINAL 04.02 8 / / Log [id number] - Bone & Biologicals - 1 - Spacer Alif Ant Luminary 15 Mm [id number] Implanted:Qty: 1 on 09/26/2010 at [facility] Spine N/A: Spine Lumbar MUSCULOSKELETAL TRANSPLANT FOU 11/01/2014 [id number] / [id number] / Description:15mm Explanted Type Area [employer]orer [employer] Device Identifier Shelf Expiration Date Model / Serial / Lot Log [id number] - Synthes Spine Antegra System - 1 - Pin Fixation Temp [id number] Explanted:Qty: 2 on 09/26/2010 at [facility] Pin N/A: Spine Lumbar SYNTHES-STRATEC- SPINAL .057 / / Description:Load # [id number] 2010 Advance Directives For more information, please contact: [phone] * Full Code (Latest Code Status on File) Date Activated Date Inactivated Comments 09/26/2010 5:47 PM 09/30/2010 10:10 PM * Full Code Date Activated Date Inactivated Comments 09/26/2010 5:17 AM 09/26/2010 5:47 PM
== END 2024-10-06 09:01 | disposition home or self-care (01) ==
PROVIDERS: PCP Physician Assistant; Visit Provider Physician Assistant
DX: Q79.9 Congenital malformation of musculoskeletal system, unspecified (principal)
CPT/HCPCS: 78300; A9503